=== PATIENT | male | born 1945 | race Caucasian/White ===

== ENCOUNTER → 2020-03-02 | Outpatient (CLI) | payer MEDICARE, OTHER ==
[~2020-03-02] MED LIST: ASPI-630 PO; FLUT16SP21 NS; GABA-586 PO; METF500T16 PO; PSYL0.5215 PO; SIMV20TA PO
== END | disposition home or self-care (01) ==
LOC: LAB 07:25
PROVIDERS: ATTEND Nurse Anesthetist, Certified Registered
DX: Z20.828 Contact with and (suspected) exposure to other viral communicable diseases (principal)
CPT/HCPCS: U0003-CS

== ENCOUNTER → 2020-03-06 | Day surgery (SDC) | payer MEDICARE, OTHER ==
[~2020-03-06] MED LIST changes: +IPRATRPIUM/ALBUTEROL 0.5/2.5MG 3 ML NEBU. NEB PRN; +IV RINGERS SOLUTION,LACTATED 1,000 ML IV SCH; +MIDAZOLAM HCL PF 2 MG/2 ML VIAL. IV ONE; +ONDANSETRON PF 4 MG/2 ML VIAL. IV PRN
[2020-03-06 11:41] VITALS: BP 128/83
== END ==
LOC: SURG 09:43
PROVIDERS: ATTEND Emergency Medicine
DX: Z12.11 Encounter for screening for malignant neoplasm of colon (principal); K57.30 Diverticulosis of large intestine without perforation or abscess without bleeding; K64.8 Other hemorrhoids; Z86.010 Personal history of colon polyps; Z88.5 Allergy status to narcotic agent; Z79.899 Other long term (current) drug therapy; Z79.82 Long term (current) use of aspirin
CPT/HCPCS: 82947; G0105; J2704; J7120; 45378

== ENCOUNTER → 2020-11-29 | Outpatient (CLI) | payer MEDICARE, OTHER ==
[2020-03-06 11:41] VITALS: BP 128/83
[~2020-11-29] MED LIST changes: -IPRATRPIUM/ALBUTEROL 0.5/2.5MG 3 ML NEBU. NEB PRN; -IV RINGERS SOLUTION,LACTATED 1,000 ML IV SCH; -MIDAZOLAM HCL PF 2 MG/2 ML VIAL. IV ONE; -ONDANSETRON PF 4 MG/2 ML VIAL. IV PRN
--- NOTE | 2020-11-29 15:36 | RAD ---
Ultrasound of the soft tissues of the right upper arm 11/29/2020 CLINICAL HISTORY: Right upper arm lump for approximately 1 year. TECHNIQUE: A real-time ultrasound examination of the soft tissues of the right upper arm was performe d. Multiple images were obtained. FINDINGS: No abnormal soft tissue mass or fluid collection is seen. No foreign body is noted. IMPRESSION: Negative study. Electronically signed by: Nawaf Mchugh MD (11/29/2020 3:34 PM) [id number]
== END ==
LOC: US 10:07
PROVIDERS: ATTEND Specialist
DX: M79.621 Pain in right upper arm (principal)
CPT/HCPCS: 76881

== ENCOUNTER → 2021-02-22 | Outpatient (CLI) | payer MEDICARE, OTHER ==
[2020-03-06 11:41] VITALS: BP 128/83
== END ==
LOC: LAB 07:21
PROVIDERS: ATTEND Surgery
DX: Z01.812 Encounter for preprocedural laboratory examination (principal); Z20.822 Contact with and (suspected) exposure to COVID-19
CPT/HCPCS: U0003

== ENCOUNTER → 2021-02-27 | Day surgery (SDC) | payer MEDICARE, OTHER ==
[~2021-02-27] MED LIST changes: +LIDOCAINE 2%/EPI 1:100,000 20 ML VIAL. ONE
--- NOTE | 2021-02-27 11:10 | PDOC4 ---
Operative Report DATE February 272020 at 1108 Preop Diagnosis Right buttock mass Post-op Diagnosis Same Operation Performed Excision of right buttock mass Patient is a 75-year-old male procedure of excision of right buttocks mass was explained to the patient detail risk benefits were also discussed including bleeding infection alternatives to this procedure also discussed with the patient who seemed to understand and gave both verbal and written consent to have the procedure performed. Patient was taken to operating room placed in the prone position his right buttocks was prepped and draped in usual sterile fashion using ChloraPrep. An area over the mass was injected with 2% lidocaine with epinephrine once this was anesthetized an elliptical incision was made 15 blade scalpel and the mass was excised mass size 1 cm and there was a 1 cm margin. Wound was then closed in a single layer 4-0 subcuticular Monocryl Mastisol Steri-Strips and island dressing were applied. Patient tolerated procedure well was discharged home in stable condition all sponge instrument needle counts listed as correct estimated blood loss 5 mL Surgeon Tushar ANESTHESIA PROPOSED: LOCAL Blood Loss 5 mL Specimen Right buttock mass Complications None JAYLAN URIBE MD Feb 27, 2021 11:09
--- NOTE | 2021-02-27 11:11 | DISCH ---
DISCHARGE INSTRUCTIONS-DC Condition on Discharge Condition on Discharge: Stable Activity after Discharge Activity Instructions for Disc: Resume previous activity Wound/Incision Care Other wound/incision instructi: May shower in 24 hours Contacting the after DC Call your doctor for: If your condition worsens Follow-Up Follow up with: Dr. Uribe in 2 weeks JAYLAN URIBE MD Feb 27, 2021 11:11
[2021-02-27 11:25] VITALS: BP 147/97
--- NOTE | 2021-02-28 16:06 | PATHOLOGY ---
[facility] Accession Number: [id number] . 01 Material submitted: . buttock - R BUTTOCK LESION. Modifiers: right . 01 Clinical history: . EXCISION OF RIGHT BUTTOCK MASS UNDER LOCAL ANAESTHETIC . 02 Diagnosis: Skin and subcutaneous tissue, right buttock lesion, excision: - Deep-seated epidermal inclusion cyst, with surrounding fibrosis, and focal chronic inflammation, foreign body giant cell reaction, and dystrophic calcification. . (JP:mm; 02/28/2021) [facility] 02/28/2021 1556 Local . 02 Comment: There is no evidence of malignancy. . (JPM:mml; 02/28/2021) . 02 Electronically signed: . Bala Mendoza MD, Pathologist NPI- [id number] . 01 Gross description: . Received in formalin labeled "Asher Auguste, R buttocks lesion" is an unoriented ellipse of skin measuring 1.8 x 0.6 x 0.9 cm. The skin surface is light nathan and grossly unremarkable. The margin is inked and the specimen is sectioned into 6 pieces. The specimen is submitted entirely in A1 to A2, with the tips in the last cassette. . Also received within the specimen container is a segment of light nathan and yellow soft tissue measuring 1.0 x 0.6 x 0.2 cm. The specimen is serially sectioned and submitted entirely in cassette A3.([facility]; 02/27/2021) [facility] 02/27/2021 1808 Local . 02 Pathologist provided ICD-10: L72.0 . 02 CPT . 127318 Specimen Comment: A courtesy copy of this report has been sent to [phone], [phone] Specimen Comment: [id number] Specimen Comment: Report sent to / DR SMITH Performed at: [address] [facility] [address], [place] [id number] MD Dominic Caballero MD Phone: [phone] Performed at: 02 [facility] [address] [place], [place] [id number] MD Bala Mendoza MD Phone: [phone]
== END | disposition home or self-care (01) ==
LOC: SURG 08:43
PROVIDERS: ATTEND Surgery
DX: L72.0 Epidermal cyst (principal); I10 Essential (primary) hypertension; E78.5 Hyperlipidemia, unspecified; E11.9 Type 2 diabetes mellitus without complications; F41.9 Anxiety disorder, unspecified; F32.9 Major depressive disorder, single episode, unspecified; N40.0 Benign prostatic hyperplasia without lower urinary tract symptoms; G47.30 Sleep apnea, unspecified; Z86.010 Personal history of colon polyps; Z79.82 Long term (current) use of aspirin; Z79.84 Long term (current) use of oral hypoglycemic drugs; Z79.899 Other long term (current) drug therapy; Z72.89 Other problems related to lifestyle; Z88.5 Allergy status to narcotic agent; Z98.890 Other specified postprocedural states
CPT/HCPCS: 11403; 19120; 88304

== ENCOUNTER → 2021-06-17 | Outpatient (CLI) | payer MEDICARE, OTHER ==
[2021-02-27 11:25] VITALS: BP 147/97
[~2021-06-17] MED LIST changes: -LIDOCAINE 2%/EPI 1:100,000 20 ML VIAL. ONE
[2021-06-17 08:48] LABS: ALBUMIN 3.9 g/dL (3.4-5.0); ALBUMIN/GLOBULIN RATIO 1.3 (1.0-1.7); CALCIUM 8.6 mg/dL (8.5-10.1); CREATININE 0.9 mg/dL (0.7-1.3); GFR 82.7; POTASSIUM 4.5 mmol/L (3.5-5.1); TOTAL BILIRUBIN 0.5 mg/dL (0.2-1.0); TOTAL PROTEIN 6.9 g/dL (6.4-8.2)
== END ==
LOC: LAB 07:44
PROVIDERS: ATTEND Internal Medicine Cardiovascular Disease
DX: E78.00 Pure hypercholesterolemia, unspecified (principal)
CPT/HCPCS: 36415; 80053; 80061